=== PATIENT | female | born 1960 | race African-American/Black ===

== ENCOUNTER 2018-12-21 08:36 | Inpatient (IN) | payer OTHER ==
[2018-12-21 09:18] VITALS: BMI 25.2
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
[2018-12-21] MEDS ORDERED: MENTHOL/PHENOL 1 EACH UD MM PRN (10:04)
[2018-12-21] MEDS ORDERED: ACETAMINOPHEN 325 MG TABLET (FP) PO PRN ×2 (10:04)
[2018-12-21] MEDS ORDERED: MAG HYDROX/AL HYDROX/SIMETH 30 ML UNIT-DOSE CUP PO PRN (10:04)
[2018-12-21] MEDS ORDERED: hydrOXYzine PAMOATE 25 MG CAPSULE (FP) PO PRN (10:04)
[2018-12-21] MEDS ORDERED: MAGNESIUM HYDROX 2400MG/30ML ORAL SUSPENSION 30 ML CUP PO PRN (10:04)
[2018-12-21] MEDS ORDERED: chlordiazePOXIDE HCL 25 MG CAPSULE PO PRN (10:04)
[2018-12-21] MEDS ORDERED: BISMUTH SUBSALICYLATE 262 MG/15 ML BTL PO PRN (10:04)
[2018-12-21] MEDS ORDERED: METHOCARBAMOL 500 MG TABLET PO PRN (10:04)
[2018-12-21] MEDS ORDERED: MELATONIN 5 MG TABLETS PO PRN (10:04)
[2018-12-21] MEDS ORDERED: MAGNESIUM CITRATE 300 ML BOTTLE PO PRN (10:04)
[2018-12-21] MEDS ORDERED: IBUPROFEN 400 MG TABLET (FP) PO PRN (10:04)
[2018-12-21] MEDS ORDERED: COLLOIDAL OATMEAL 1 BAR EACH TP PRN (11:18)
[2018-12-21] MEDS: chlordiazePOXIDE HCL 25 MG CAPSULE PO SCH ×3 (11:27→22:18)
[2018-12-21] MEDS: NICOTINE 21 MG/24 HOURS TOPICAL PATCH TD SCH (11:27)
[2018-12-21] MEDS: FLUOCINONIDE 0.05% CREAM (60 GM TUBE) TP SCH ×2 (15:06→22:19)
[2018-12-21 16:06] LABS: ALBUMIN 3.8 g/dl (3.4-5.0); ALK PHOS 67 U/L (45-117); ANION GAP 6 MMOL/L (8-16); BILIRUBIN,TOTAL 0.4 mg/dL (0.2-1); BLOOD UREA NITROGEN 10 mg/dL (7-18); CALCIUM 8.9 mg/dL (8.5-10.1); CHLORIDE 106 mmol/L (98-107); CO2 27 mmol/L (21-32); CREATININE 0.7 mg/dL (0.55-1.3); GLUCOSE,RANDOM 79 mg/dL (74-106); POTASSIUM 3.8 mmol/L (3.5-5.1); SGOT/AST 11 U/L (15-37); SGPT/ALT 15 U/L (13-61); SODIUM 139 mmol/L (136-145); TOT PROT 7.3 g/dl (6.4-8.2)
[2018-12-21 16:27] LABS: EPI CELLS 2.6 /HPF (0-5/HPF); PH,URINE 5.5 (5.0-8.0); URINE APPEARANCE CLEAR; URINE BACTERIA 2.2 /hpf (NEGATIVE); URINE BILIRUBIN NEGATIVE (NEGATIVE); URINE CASTS 7 /hpf (0-8); URINE COLOR YELLOW; URINE GLUCOSE (UA) NEGATIVE (NEGATIVE); URINE KETONE NEGATIVE (NEGATIVE); URINE LEUK ESTERASE 2+ (NEGATIVE); URINE NITRITE NEGATIVE (NEGATIVE); URINE PROTEIN NEGATIVE (NEGATIVE); URINE RBC 2 /hpf (0-4); URINE UROBILINOGEN 0.2 mg/dL (0.2-1.0); URINE WBC 6 /hpf (0-5)
[2018-12-21 16:38] LABS: HEMATOCRIT 35.8 % (32.4-45.2); HEMOGLOBIN 11.7 GM/dL (10.7-15.3); MCH 29.1 pg (25.7-33.7); MCHC 32.8 g/dl (32.0-36.0); MEAN CELL VOLUME 88.7 fl (80-96); MEAN PLT VOLUME 8.6 fl (7.5-11.1); PLATELET COUNT 320 K/MM3 (134-434); RBC 4.03 M/mm3 (3.60-5.2); RDW 12.7 % (11.6-15.6); WHITE BLOOD COUNT 5.5 K/mm3 (4.0-10.0)
[2018-12-21 17:25] LABS: SICKLE CELL SCREEN NEGATIVE (NEGATIVE)
[2018-12-21] MEDS: CELECOXIB 100 MG CAPSULE PO SCH (22:17)
[2018-12-21] MEDS: THIAMINE HCL 100 MG TABLET (FP) PO SCH (22:18)
[2018-12-21] MEDS: QUEtiapine FUMARATE 50 MG TABLET PO SCH (22:18)
[2018-12-22] MEDS: chlordiazePOXIDE HCL 25 MG CAPSULE PO SCH ×4 (06:00→22:06)
[2018-12-22] MEDS: NICOTINE 21 MG/24 HOURS TOPICAL PATCH TD SCH (10:14)
[2018-12-22] MEDS: FLUOCINONIDE 0.05% CREAM (60 GM TUBE) TP SCH ×2 (10:15→22:05)
[2018-12-22] MEDS: PRENATAL VITAMINS W/ FOLIC ACID TABLET (FP) PO SCH (10:15)
[2018-12-22] MEDS: CELECOXIB 100 MG CAPSULE PO SCH ×2 (10:21→22:05)
--- NOTE | 2018-12-22 11:32 | PN ---
[facility] CIWA - CIWA Score Nausea/Vomitin-No Nausea/No Vomiting Muscle Tremors: 3 Anxiety: 3 Agitation: 3 Paroxysmal Sweats: 3 Orientation: 0-Oriented Tacttile Disturbances: 0-None Auditory Disturbances: 0-None Visual Disturbances: 0-None Headache: 0-None Present CIWA-Ar Total Score: 12 S Progress Note (SOAP) Subjective: tired sweats shakes interrupted sleep Objective: 12/22/18 11:30 Vital Signs Temperature 98.2 F 12/22/18 09:22 Pulse Rate 90 12/22/18 09:22 Respiratory Rate 16 12/22/18 09:22 Blood Pressure 114/73 12/22/18 09:22 O2 Sat by Pulse Oximetry (%) Laboratory Tests 12/21/18 12/21/18 12/21/18 10:15 10:15 10:15 WBC 5.5 RBC 4.03 Hgb 11.7 Hct 35.8 MCV 88.7 MCH 29.1 MCHC 32.8 RDW 12.7 Plt Count 320 MPV 8.6 Sickle Cell Screen Negative Sodium 139 Potassium 3.8 Chloride 106 Carbon Dioxide 27 Anion Gap 6 L BUN 10 Creatinine 0.7 Creat Clearance w eGFR 85.36 Random Glucose 79 Calcium 8.9 Total Bilirubin 0.4 AST 11 L ALT 15 Alkaline Phosphatase 67 Total Protein 7.3 Albumin 3.8 Urine Color Urine Appearance Urine pH Ur Specific [place] Urine Protein Urine Glucose (UA) Urine Ketones Urine Blood Urine Nitrite Urine Bilirubin Urine Urobilinogen Ur Leukocyte Esterase Urine WBC (Auto) Urine RBC (Auto) Urine Casts (Auto) U Epithel Cells (Auto) Urine Bacteria (Auto) RPR Titer Nonreactive 12/21/18 12:40 WBC RBC Hgb Hct MCV MCH MCHC RDW Plt Count MPV Sickle Cell Screen Sodium Potassium Chloride Carbon Dioxide Anion Gap BUN Creatinine Creat Clearance w eGFR Random Glucose Calcium Total Bilirubin AST ALT Alkaline Phosphatase Total Protein Albumin Urine Color Yellow Urine Appearance Clear Urine pH 5.5 Ur Specific [place] 1.012 Urine Protein Negative Urine Glucose (UA) Negative Urine Ketones Negative Urine Blood Negative Urine Nitrite Negative Urine Bilirubin Negative Urine Urobilinogen 0.2 Ur Leukocyte Esterase 2+ H Urine WBC (Auto) 6 Urine RBC (Auto) 2 Urine Casts (Auto) 7 U Epithel Cells (Auto) 2.6 Urine Bacteria (Auto) 2.2 RPR Titer aaox3 ambulating no acute distress Assessment: 12/22/18 11:37 withdrawal sx Plan: continue detox increase fluids
--- NOTE | 2018-12-22 16:39 | EKG ---
Test Reason : Blood Pressure : / mmHG Vent. Rate : 071 BPM Atrial Rate : 071 BPM P-R Int : 152 ms QRS Dur : 084 ms QT Int : 384 ms P-R-T Axes : 062 -06 019 degrees QTc Int : 417 ms NORMAL SINUS RHYTHM NORMAL ECG NO PREVIOUS ECGS AVAILABLE Confirmed by LEILA WORKMAN MD ([id number]) on 12/22/2018 4:39:32 PM Referred By: Confirmed By:LEILA WORKMAN MD
[2018-12-22] MEDS: THIAMINE HCL 100 MG TABLET (FP) PO SCH (22:05)
[2018-12-22] MEDS: QUEtiapine FUMARATE 50 MG TABLET PO SCH (22:05)
[2018-12-23] MEDS: chlordiazePOXIDE HCL 25 MG CAPSULE PO SCH (06:03)
[2018-12-23] MEDS ORDERED: NICOTINE POLACRILEX 4 MG GUM BUC PRN (06:44)
[2018-12-23] MEDS: CELECOXIB 100 MG CAPSULE PO SCH ×2 (10:07→22:14)
[2018-12-23] MEDS: PRENATAL VITAMINS W/ FOLIC ACID TABLET (FP) PO SCH (10:07)
[2018-12-23] MEDS: chlordiazePOXIDE HCL 10 MG CAPSULE PO SCH ×3 (10:07→22:14)
[2018-12-23] MEDS: FLUOCINONIDE 0.05% CREAM (60 GM TUBE) TP SCH ×2 (10:07→22:28)
[2018-12-23] MEDS: NICOTINE 21 MG/24 HOURS TOPICAL PATCH TD SCH (10:34)
[2018-12-23] MEDS ORDERED: chlordiazePOXIDE HCL 10 MG CAPSULE PO PRN (11:00)
--- NOTE | 2018-12-23 14:14 | PN ---
[facility] CIWA - CIWA Score Nausea/Vomitin-No Nausea/No Vomiting Muscle Tremors: 3 Anxiety: 3 Agitation: 3 Paroxysmal Sweats: 2 Orientation: 0-Oriented Tacttile Disturbances: 0-None Auditory Disturbances: 0-None Visual Disturbances: 0-None Headache: 0-None Present CIWA-Ar Total Score: 11 S Progress Note (SOAP) Subjective: irritable body aches sweats Objective: 12/23/18 14:13 Vital Signs Temperature 98.1 F 12/23/18 09:23 Pulse Rate 76 12/23/18 09:23 Respiratory Rate 18 12/23/18 09:23 Blood Pressure 101/57 L 12/23/18 09:23 O2 Sat by Pulse Oximetry (%) Laboratory Tests 12/21/18 12/21/18 12/21/18 10:15 10:15 10:15 WBC 5.5 RBC 4.03 Hgb 11.7 Hct 35.8 MCV 88.7 MCH 29.1 MCHC 32.8 RDW 12.7 Plt Count 320 MPV 8.6 Sickle Cell Screen Negative Sodium 139 Potassium 3.8 Chloride 106 Carbon Dioxide 27 Anion Gap 6 L BUN 10 Creatinine 0.7 Creat Clearance w eGFR 85.36 Random Glucose 79 Calcium 8.9 Total Bilirubin 0.4 AST 11 L ALT 15 Alkaline Phosphatase 67 Total Protein 7.3 Albumin 3.8 Urine Color Urine Appearance Urine pH Ur Specific [place] Urine Protein Urine Glucose (UA) Urine Ketones Urine Blood Urine Nitrite Urine Bilirubin Urine Urobilinogen Ur Leukocyte Esterase Urine WBC (Auto) Urine RBC (Auto) Urine Casts (Auto) U Epithel Cells (Auto) Urine Bacteria (Auto) RPR Titer Nonreactive 12/21/18 12:40 WBC RBC Hgb Hct MCV MCH MCHC RDW Plt Count MPV Sickle Cell Screen Sodium Potassium Chloride Carbon Dioxide Anion Gap BUN Creatinine Creat Clearance w eGFR Random Glucose Calcium Total Bilirubin AST ALT Alkaline Phosphatase Total Protein Albumin Urine Color Yellow Urine Appearance Clear Urine pH 5.5 Ur Specific [place] 1.012 Urine Protein Negative Urine Glucose (UA) Negative Urine Ketones Negative Urine Blood Negative Urine Nitrite Negative Urine Bilirubin Negative Urine Urobilinogen 0.2 Ur Leukocyte Esterase 2+ H Urine WBC (Auto) 6 Urine RBC (Auto) 2 Urine Casts (Auto) 7 U Epithel Cells (Auto) 2.6 Urine Bacteria (Auto) 2.2 RPR Titer aaox3 ambulating no acute distress Assessment: 12/23/18 14:13 mild withdrawals Plan: continue detox increase fluids
[2018-12-23] MEDS: THIAMINE HCL 100 MG TABLET (FP) PO SCH (22:14)
[2018-12-23] MEDS: QUEtiapine FUMARATE 50 MG TABLET PO SCH (22:14)
[2018-12-24] MEDS: chlordiazePOXIDE HCL 10 MG CAPSULE PO SCH (06:52)
[2018-12-24] MEDS: PRENATAL VITAMINS W/ FOLIC ACID TABLET (FP) PO SCH (09:03)
[2018-12-24] MEDS: NICOTINE 21 MG/24 HOURS TOPICAL PATCH TD SCH (09:03)
[2018-12-24] MEDS: CELECOXIB 100 MG CAPSULE PO SCH (09:03)
[2018-12-24] MEDS: FLUOCINONIDE 0.05% CREAM (60 GM TUBE) TP SCH (09:03)
[2018-12-24] MEDS ORDERED: chlordiazePOXIDE HCL 10 MG CAPSULE PO SCH (11:00)
--- NOTE | 2018-12-24 12:49 | PN ---
[facility] Progress Note (SOAP) Subjective: Mild sweats and tremors, interrupted sleep Objective: 12/24/18 12:48 Vital Signs 12/24/18 12/24/18 06:33 10:00 Temperature 97.7 F 98.1 F Pulse Rate 75 90 Respiratory 18 18 Rate Blood Pressure 115/60 138/76 Laboratory Last Values WBC 5.5 K/mm3 (4.0-10.0) 12/21/18 10:15 RBC 4.03 M/mm3 (3.60-5.2) 12/21/18 10:15 Hgb 11.7 GM/dL (10.7-15.3) 12/21/18 10:15 Hct 35.8 % (32.4-45.2) 12/21/18 10:15 MCV 88.7 fl (80-96) 12/21/18 10:15 MCH 29.1 pg (25.7-33.7) 12/21/18 10:15 MCHC 32.8 g/dl (32.0-36.0) 12/21/18 10:15 RDW 12.7 % (11.6-15.6) 12/21/18 10:15 Plt Count 320 K/MM3 (134-434) 12/21/18 10:15 MPV 8.6 fl (7.5-11.1) 12/21/18 10:15 Sickle Cell Screen Negative (NEGATIVE) 12/21/18 10:15 Sodium 139 mmol/L (136-145) 12/21/18 10:15 Potassium 3.8 mmol/L (3.5-5.1) 12/21/18 10:15 Chloride 106 mmol/L (98-107) 12/21/18 10:15 Carbon Dioxide 27 mmol/L (21-32) 12/21/18 10:15 Anion Gap 6 MMOL/L (8-16) L 12/21/18 10:15 BUN 10 mg/dL (7-18) 12/21/18 10:15 Creatinine 0.7 mg/dL (0.55-1.3) 12/21/18 10:15 Creat Clearance w eGFR 85.36 (>60) 12/21/18 10:15 Random Glucose 79 mg/dL (74-106) 12/21/18 10:15 Calcium 8.9 mg/dL (8.5-10.1) 12/21/18 10:15 Total Bilirubin 0.4 mg/dL (0.2-1) 12/21/18 10:15 AST 11 U/L (15-37) L 12/21/18 10:15 ALT 15 U/L (13-61) 12/21/18 10:15 Alkaline Phosphatase 67 U/L (45-117) 12/21/18 10:15 Total Protein 7.3 g/dl (6.4-8.2) 12/21/18 10:15 Albumin 3.8 g/dl (3.4-5.0) 12/21/18 10:15 Urine Color Yellow 12/21/18 12:40 Urine Appearance Clear 12/21/18 12:40 Urine pH 5.5 (5.0-8.0) 12/21/18 12:40 Ur Specific [place] 1.012 (1.010-1.035) 12/21/18 12:40 Urine Protein Negative (NEGATIVE) 12/21/18 12:40 Urine Glucose (UA) Negative (NEGATIVE) 12/21/18 12:40 Urine Ketones Negative (NEGATIVE) 12/21/18 12:40 Urine Blood Negative (NEGATIVE) 12/21/18 12:40 Urine Nitrite Negative (NEGATIVE) 12/21/18 12:40 Urine Bilirubin Negative (NEGATIVE) 12/21/18 12:40 Urine Urobilinogen 0.2 mg/dL (0.2-1.0) 12/21/18 12:40 Ur Leukocyte Esterase 2+ (NEGATIVE) H 12/21/18 12:40 Urine WBC (Auto) 6 /hpf (0-5) 12/21/18 12:40 Urine RBC (Auto) 2 /hpf (0-4) 12/21/18 12:40 Urine Casts (Auto) 7 /hpf (0-8) 12/21/18 12:40 U Epithel Cells (Auto) 2.6 /HPF (0-5/HPF) 12/21/18 12:40 Urine Bacteria (Auto) 2.2 /hpf (NEGATIVE) 12/21/18 12:40 RPR Titer Nonreactive (NONREACTIVE) 12/21/18 10:15 Labs noted Assessment: 12/24/18 12:49 Withdrawal sx Plan: Continue detox
[2018-12-24 14:30] VITALS: BP 123/71; PULSE 102; TEMP 99.1
--- NOTE | 2018-12-24 17:34 | PN ---
S Progress Note Note: patient did not want to complete treatment,signed release ama,did not want to wait
--- NOTE | 2018-12-24 17:42 | DS ---
[facility] Detox Discharge Summary Admission Date: 12/21/18 Discharge Date: 12/24/18 - History Present History: Alcohol Dependence Additional Comments: patient did not want to complete treatment,signed release ama,chance of relapsing is high, advise to go to [facility] emergency room if any problem Pertinent Past History: copd hypercholesterolemia weight loss bipolar disorder syncope - Physical Exam Results Vital Signs: Vital Signs Temperature 99.1 F 12/24/18 14:30 Pulse Rate 102 H 12/24/18 14:30 Respiratory Rate 16 12/24/18 14:30 Blood Pressure 123/71 12/24/18 14:30 O2 Sat by Pulse Oximetry (%) Pertinent Admission Physical Exam Findings: withdrawal signs and symptom Vital Signs Temperature 99.1 F 12/24/18 14:30 Pulse Rate 102 H 12/24/18 14:30 Respiratory Rate 16 12/24/18 14:30 Blood Pressure 123/71 12/24/18 14:30 O2 Sat by Pulse Oximetry (%) Laboratory Last Values WBC 5.5 K/mm3 (4.0-10.0) 12/21/18 10:15 RBC 4.03 M/mm3 (3.60-5.2) 12/21/18 10:15 Hgb 11.7 GM/dL (10.7-15.3) 12/21/18 10:15 Hct 35.8 % (32.4-45.2) 12/21/18 10:15 MCV 88.7 fl (80-96) 12/21/18 10:15 MCH 29.1 pg (25.7-33.7) 12/21/18 10:15 MCHC 32.8 g/dl (32.0-36.0) 12/21/18 10:15 RDW 12.7 % (11.6-15.6) 12/21/18 10:15 Plt Count 320 K/MM3 (134-434) 12/21/18 10:15 MPV 8.6 fl (7.5-11.1) 12/21/18 10:15 Sickle Cell Screen Negative (NEGATIVE) 12/21/18 10:15 Sodium 139 mmol/L (136-145) 12/21/18 10:15 Potassium 3.8 mmol/L (3.5-5.1) 12/21/18 10:15 Chloride 106 mmol/L (98-107) 12/21/18 10:15 Carbon Dioxide 27 mmol/L (21-32) 12/21/18 10:15 Anion Gap 6 MMOL/L (8-16) L 12/21/18 10:15 BUN 10 mg/dL (7-18) 12/21/18 10:15 Creatinine 0.7 mg/dL (0.55-1.3) 12/21/18 10:15 Creat Clearance w eGFR 85.36 (>60) 12/21/18 10:15 Random Glucose 79 mg/dL (74-106) 12/21/18 10:15 Calcium 8.9 mg/dL (8.5-10.1) 12/21/18 10:15 Total Bilirubin 0.4 mg/dL (0.2-1) 12/21/18 10:15 AST 11 U/L (15-37) L 12/21/18 10:15 ALT 15 U/L (13-61) 12/21/18 10:15 Alkaline Phosphatase 67 U/L (45-117) 12/21/18 10:15 Total Protein 7.3 g/dl (6.4-8.2) 12/21/18 10:15 Albumin 3.8 g/dl (3.4-5.0) 12/21/18 10:15 Urine Color Yellow 12/21/18 12:40 Urine Appearance Clear 12/21/18 12:40 Urine pH 5.5 (5.0-8.0) 12/21/18 12:40 Ur Specific [place] 1.012 (1.010-1.035) 12/21/18 12:40 Urine Protein Negative (NEGATIVE) 12/21/18 12:40 Urine Glucose (UA) Negative (NEGATIVE) 12/21/18 12:40 Urine Ketones Negative (NEGATIVE) 12/21/18 12:40 Urine Blood Negative (NEGATIVE) 12/21/18 12:40 Urine Nitrite Negative (NEGATIVE) 12/21/18 12:40 Urine Bilirubin Negative (NEGATIVE) 12/21/18 12:40 Urine Urobilinogen 0.2 mg/dL (0.2-1.0) 12/21/18 12:40 Ur Leukocyte Esterase 2+ (NEGATIVE) H 12/21/18 12:40 Urine WBC (Auto) 6 /hpf (0-5) 12/21/18 12:40 Urine RBC (Auto) 2 /hpf (0-4) 12/21/18 12:40 Urine Casts (Auto) 7 /hpf (0-8) 12/21/18 12:40 U Epithel Cells (Auto) 2.6 /HPF (0-5/HPF) 12/21/18 12:40 Urine Bacteria (Auto) 2.2 /hpf (NEGATIVE) 12/21/18 12:40 RPR Titer Nonreactive (NONREACTIVE) 12/21/18 10:15 - Medication Discharge Medications: Ambulatory Orders Celecoxib [Celebrex -] 100 mg PO BID 12/21/18 Quetiapine Fumarate [Seroquel -] 50 mg PO HS 12/21/18 - Diagnosis (1) Alcohol dependence with uncomplicated withdrawal Current Visit: Yes Status: Acute (2) Syncope Current Visit: Yes Status: Acute (3) COPD (chronic obstructive pulmonary disease) Current Visit: Yes Status: Acute (4) Hypercholesterolemia Current Visit: Yes Status: Acute (5) Weight loss Current Visit: Yes Status: Acute (6) Bipolar disorder Current Visit: Yes Status: Acute (7) Insomnia Current Visit: Yes Status: Acute - AMA Did Patient Leave Against Medical Advice: Yes
== END 2018-12-24 17:30 | disposition left against medical advice (07) | DRG 770 ==
LOC: YASAS 08:36 → Y6N 09:53
PROVIDERS: ADMIT Surgery; ATTEND Surgery
PROC: HZ2ZZZZ Detoxification Services for Substance Abuse Treatment (ICD-10-PCS; principal; 2018-12-21)
DX: F10.230 Alcohol dependence with withdrawal, uncomplicated (principal); F14.20 Cocaine dependence, uncomplicated; F17.210 Nicotine dependence, cigarettes, uncomplicated; F31.9 Bipolar disorder, unspecified; G47.00 Insomnia, unspecified; J44.9 Chronic obstructive pulmonary disease, unspecified; E78.00 Pure hypercholesterolemia, unspecified; R63.4 Abnormal weight loss
CPT/HCPCS: 36415; 71046-TC-FY; 80053; 81003; 85027; 85660; 86593; 93005; 93010

== ENCOUNTER 2019-03-20 09:47 | Inpatient (IN) | payer OTHER ==
[2019-03-20 11:49] VITALS: BMI 24.6
--- NOTE | 2019-03-20 14:15 | HP ---
CIWA Score Nausea/Vomitin-No Nausea/No Vomiting Muscle Tremors: 4-Moderate,w/Arms Extend Anxiety: 4-Mod. Anxious/Guarded Agitation: 3 Paroxysmal Sweats: 3 Orientation: 0-Oriented Tacttile Disturbances: 0-None Auditory Disturbances: 0-None Visual Disturbances: 0-None Headache: 0-None Present CIWA-Ar Total Score: 14 - Admission Criteria OASAS Guidelines: Admission for Medically Managed Detox: Requires at least one of the followin. CIWA greater than 12 2. Seizures within the past 24 hours 3. Delirium tremens within the past 24 hours 4. Hallucinations within the past 24 hours 5. Acute intervention needed for co occurring medical disorder 6. Acute intervention needed for co occurring psychiatric disorder 7. Severe withdrawal that cannot be handled at a lower level of care (continued vomiting, continued diarrhea, abnormal vital signs) requiring intravenous medication and/or fluids 8. Admission ROS S - HPI Chief Complaint: I need to stop drinking. Allergies/Adverse Reactions: Allergies Allergy/AdvReac Type Severity Reaction Status Date / Time lactose Allergy Verified 12/21/18 09:58 No Known Drug Allergies Allergy Verified 12/21/18 09:58 History of Present Illness: pt is a 58yrold female with a history of alcohol dependence seeking detox for treatment. Exam Limitations: No Limitations - Ebola screening Have you traveled outside of the country in the last 21 days: No (N) Have you had contact with anyone from an Ebola affected area: No Have you been sick,other than usual withdrawal symptoms: No Do you have a fever: No - Review of Systems Constitutional: Chills, Diaphoresis, Night Sweats, Changes in sleep, Unintentional Wgt. Loss EENT: reports: Tearing, Nose Congestion Respiratory: reports: Cough Cardiac: reports: Lightheadedness, Syncope GI: reports: Poor Fluid Intake, Indigestion, Abdominal cramping : reports: No Symptoms Reported Musculoskeletal: reports: Back Pain, Joint Pain Integumentary: reports: Flushing, Sweating Endocrine: reports: Excessive Sweating, Flushing, Intolerance to Cold Hematology: reports: No Symptoms Reported Psychiatric: reports: Judgement Intact, Mood/Affect Appropiate, Orientated x3, Agitated, Anxious Other Systems: Reviewed and Negative Patient History - Patient Medical History Hx Anemia: No Hx Asthma: No Hx Chronic Obstructive Pulmonary Disease (COPD): Yes (albuterol inhaler) Hx Cancer: No Hx Cardiac Disorders: No Hx Congestive Heart Failure: No Hx Hypertension: No Hx Hypercholesterolemia: No Hx Pacemaker: No HX Cerebrovascular Accident: No Hx Seizures: No Hx Dementia: No Hx Diabetes: No Hx Gastrointestinal Disorders: Yes Hx Liver Disease: No Hx Genitourinary Disorders: No Hx Sexually Transmitted Disorders: No Hx Renal Disease (ESRD): No Hx Thyroid Disease: No Hx Human Immunodeficiency Virus (HIV): No (last 2014 negative) Hx Hepatitis C: No (negative) Hx Depression: Yes Hx Suicide Attempt: No Hx Bipolar Disorder: Yes (on seroqule 50 mgs po hs) Hx Schizophrenia: No - Patient Surgical History Past Surgical History: Yes Hx Orthopedic Surgery: Yes (arhtroscopy right knee 2013,2018,right shoulder 2013 ) Other Surgical History: Arthroscopic xs R shoulder in 2013 Anesthesia Reaction: No - PPD History Previous Implant?: Yes Implanted On Prior R Admission?: No Date: 12/21/18 Results: - chest xray PPD to be Administered?: No - Reproductive History Patient is a Female of Child Bearing Age (11 -55 yrs old): No - Smoking Cessation Smoking history: Current every day smoker Have you smoked in the past 12 months: Yes Aproximately how many cigarettes per day: 10 Hx Chewing Tobacco Use: No Initiated information on smoking cessation: Yes 'Breaking Loose' booklet given: 03/20/19 - Substance & Tx. History Hx Alcohol Use: Yes Substance Use Type: Alcohol, Cocaine, Marijuana Hx Substance Use Treatment: Yes (last detox [facility] 12/2018) - Substances abused Alcohol Substance route: Oral Frequency: 1-3 times last 30 days Amount used: 1 pint vodka Age of first use: 12 Date of last use: 03/20/19 Crack Substance route: Smoking Frequency: Daily Amount used: $1200 Age of first use: 20 Date of last use: 03/20/19 Marijuana/Hashish Substance route: Smoking Frequency: Daily Amount used: $25 Age of first use: 12 Date of last use: 03/20/19 Family Disease History - Family Disease History Family History: Denies Admission Physical Exam BHS - Vital Signs Vital Signs: Vital Signs - 24 hr 03/20/19 11:25 Temperature 98.4 F Pulse Rate 69 Respiratory 20 Rate Blood Pressure 109/65 - Physical General Appearance: Yes: Appropriately Dressed, Moderate Distress, Tremorous, Irritable, Sweating, Anxious HEENTM: Yes: Hearing grossly Normal, Normal Voice, Nasal Congestion, Rhinorrhea Respiratory: Yes: Lungs Clear, Normal Breath Sounds, No Respiratory Distress Neck: Yes: No masses,lesions,Nodules Breast: Yes: Within Normal Limits Cardiology: Yes: Regular Rhythm, Regular Rate, S1, S2 Abdominal: Yes: Within Normal Limits, Normal Bowel Sounds, Soft Genitourinary: Yes: Within Normal Limits Back: Yes: Normal Inspection Musculoskeletal: Yes: full range of Motion, Back pain Extremities: Yes: Normal Capillary Refill, Normal Inspection, Non-Tender, Tremors Neurological: Yes: Fully Oriented, Alert, Normal Response Integumentary: Yes: Normal Color, Diaphoresis Lymphatic: Yes: Within Normal Limits - Diagnostic (1) Alcohol dependence with uncomplicated withdrawal Current Visit: Yes Status: Chronic (2) Bipolar disorder Current Visit: No Status: Acute (3) COPD (chronic obstructive pulmonary disease) Current Visit: No Status: Acute (4) Syncope Current Visit: Yes Status: Chronic Qualifiers: Syncope type: unspecified Qualified Code(s): R55 - Syncope and collapse Cleared for Admission [facility] - Detox or Rehab [facility] Level of Care: Medically Managed Detox Regimen/Protocol: Librium Breathalyzer - Breathalyzer Breathalyzer: 0 POC Urine test - Test device test lot number: [id number] Expiration date: 05/13/20 - Control test control: Yes Urine Drug Screen - Test Device Lot number: [id number] Expiration date: 01/10/21 - Control Is test valid?: Yes - Results Drug screen NEGATIVE: No Urine drug screen results: THC-Marijuana, ESVIN-Cocaine Inpatient Rehab Admission - Rehab Decision to Admit Inpatient rehab admission?: No
[2019-03-20] MEDS ORDERED: MAGNESIUM HYDROX 2400MG/30ML ORAL SUSPENSION 30 ML CUP PO PRN (14:22)
[2019-03-20] MEDS ORDERED: NICOTINE POLACRILEX 4 MG GUM BUC PRN (14:22)
[2019-03-20] MEDS ORDERED: IBUPROFEN 400 MG TABLET (FP) PO PRN (14:22)
[2019-03-20] MEDS ORDERED: MAG HYDROX/AL HYDROX/SIMETH 30 ML UNIT-DOSE CUP PO PRN (14:22)
[2019-03-20] MEDS ORDERED: hydrOXYzine PAMOATE 25 MG CAPSULE (FP) PO PRN (14:22)
[2019-03-20] MEDS ORDERED: ACETAMINOPHEN 325 MG TABLET (FP) PO PRN ×2 (14:22)
[2019-03-20] MEDS ORDERED: chlordiazePOXIDE HCL 25 MG CAPSULE PO PRN (14:22)
[2019-03-20] MEDS ORDERED: ONDANSETRON *ODT* 4 MG TABLET SL PRN (14:22)
[2019-03-20] MEDS ORDERED: MAGNESIUM CITRATE 300 ML BOTTLE PO PRN (14:22)
[2019-03-20] MEDS ORDERED: METHOCARBAMOL 500 MG TABLET PO PRN (14:22)
[2019-03-20] MEDS ORDERED: MENTHOL/PHENOL 1 EACH UD MM PRN (14:22)
[2019-03-20] MEDS ORDERED: chlordiazePOXIDE HCL 25 MG CAPSULE PO ONE (15:45)
[2019-03-20] MEDS: chlordiazePOXIDE HCL 25 MG CAPSULE PO SCH ×2 (16:05→22:21)
[2019-03-20 16:54] LABS: HEMATOCRIT 33.9 % (32.4-45.2); HEMOGLOBIN 11.1 GM/dL (10.7-15.3); MCH 29.2 pg (25.7-33.7); MCHC 32.8 g/dl (32.0-36.0); MEAN CELL VOLUME 89.1 fl (80-96); MEAN PLT VOLUME 9.1 fl (7.5-11.1); PLATELET COUNT 323 K/MM3 (134-434); RDW 12.8 % (11.6-15.6); WHITE BLOOD COUNT 5.6 K/mm3 (4.0-10.0)
[2019-03-20 16:59] LABS: ALBUMIN 3.7 g/dl (3.4-5.0); BILIRUBIN,TOTAL 0.3 mg/dL (0.2-1); BLOOD UREA NITROGEN 9.8 mg/dL (7-18); CALCIUM 8.7 mg/dL (8.5-10.1); CREATININE 0.8 mg/dL (0.55-1.3); POTASSIUM 4.6 mmol/L (3.5-5.1); TOT PROT 6.8 g/dl (6.4-8.2)
[2019-03-20] MEDS: THIAMINE HCL 100 MG TABLET (FP) PO SCH (22:21)
[2019-03-21] MEDS: chlordiazePOXIDE HCL 25 MG CAPSULE PO SCH ×4 (05:51→22:28)
[2019-03-21] MEDS: PRENATAL VITAMINS W/ FOLIC ACID TABLET (FP) PO SCH (10:12)
[2019-03-21] MEDS: NICOTINE 21 MG/24 HOURS TOPICAL PATCH TD SCH (10:12)
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
--- NOTE | 2019-03-21 10:52 | PN ---
S CIWA - CIWA Score Nausea/Vomitin-Mild Nausea/No Vomiting Muscle Tremors: 4-Moderate,w/Arms Extend Anxiety: 4-Mod. Anxious/Guarded Agitation: 4-Moderately Restless Paroxysmal Sweats: 3 Orientation: 0-Oriented Tacttile Disturbances: 0-None Auditory Disturbances: 0-None Visual Disturbances: 0-None Headache: 0-None Present CIWA-Ar Total Score: 16 BHS Progress Note (SOAP) Subjective: low back pain sweats interrupted sleep body aches Objective: 03/21/19 10:51 Vital Signs Temperature 98.6 F 03/21/19 09:41 Pulse Rate 73 03/21/19 09:41 Respiratory Rate 18 03/21/19 09:41 Blood Pressure 118/71 03/21/19 09:41 O2 Sat by Pulse Oximetry (%) Laboratory Tests 03/20/19 03/20/19 03/20/19 12:30 15:00 15:00 WBC 5.6 RBC 3.80 Hgb 11.1 Hct 33.9 MCV 89.1 MCH 29.2 MCHC 32.8 RDW 12.8 Plt Count 323 MPV 9.1 Sodium Potassium Chloride Carbon Dioxide Anion Gap BUN Creatinine Est GFR (CKD-EPI)AfAm Est GFR (CKD-EPI)NonAf Random Glucose Calcium Total Bilirubin AST ALT Alkaline Phosphatase Total Protein Albumin POC Urine HCG, Qual Negative RPR Titer HIV 1&2 Antibody Screen Negative HIV P24 Antigen Negative 03/20/19 03/20/19 15:00 15:00 WBC RBC Hgb Hct MCV MCH MCHC RDW Plt Count MPV Sodium 142 Potassium 4.6 Chloride 108 H Carbon Dioxide 32 Anion Gap 1 L BUN 9.8 Creatinine 0.8 Est GFR (CKD-EPI)AfAm 92.87 Est GFR (CKD-EPI)NonAf 80.13 Random Glucose 80 Calcium 8.7 Total Bilirubin 0.3 AST 11 L ALT 19 Alkaline Phosphatase 70 Total Protein 6.8 Albumin 3.7 POC Urine HCG, Qual RPR Titer Nonreactive HIV 1&2 Antibody Screen HIV P24 Antigen labs noted aaox3 ambulating no acute distress Assessment: 03/21/19 10:52 withdrawal sx Plan: continue detox increase fluids zofran sl prn lidocaine patch daily
[2019-03-21] MEDS: LIDOCAINE 5% TOPICAL PATCH TP SCH (11:25)
[2019-03-21] MEDS: THIAMINE HCL 100 MG TABLET (FP) PO SCH (22:27)
[2019-03-21] MEDS: QUEtiapine FUMARATE 50 MG TABLET PO SCH (22:28)
[2019-03-21] MEDS: LIDOCAINE PATCH REMOVAL MC SCH (22:28)
[2019-03-22] MEDS: chlordiazePOXIDE HCL 25 MG CAPSULE PO SCH ×4 (05:36→22:33)
[2019-03-22] MEDS: PRENATAL VITAMINS W/ FOLIC ACID TABLET (FP) PO SCH (10:32)
[2019-03-22] MEDS: NICOTINE 21 MG/24 HOURS TOPICAL PATCH TD SCH (10:32)
[2019-03-22] MEDS: LIDOCAINE 5% TOPICAL PATCH TP SCH (10:32)
[2019-03-22] MEDS ORDERED: IBUPROFEN 600 MG TABLET (FP) PO PRN (13:19)
--- NOTE | 2019-03-22 13:19 | PN ---
[facility] CIWA - CIWA Score Nausea/Vomitin-No Nausea/No Vomiting Muscle Tremors: 3 Anxiety: 2 Agitation: 3 Paroxysmal Sweats: 2 Orientation: 0-Oriented Tacttile Disturbances: 0-None Auditory Disturbances: 0-None Visual Disturbances: 0-None Headache: 0-None Present CIWA-Ar Total Score: 10 S Progress Note (SOAP) Subjective: sweats low back pain Objective: 03/22/19 13:18 Vital Signs Temperature 98.6 F 03/22/19 09:36 Pulse Rate 93 H 03/22/19 09:36 Respiratory Rate 18 03/22/19 09:36 Blood Pressure 131/65 03/22/19 09:36 O2 Sat by Pulse Oximetry (%) Laboratory Tests 03/20/19 03/20/19 03/20/19 12:30 15:00 15:00 WBC 5.6 RBC 3.80 Hgb 11.1 Hct 33.9 MCV 89.1 MCH 29.2 MCHC 32.8 RDW 12.8 Plt Count 323 MPV 9.1 Sodium Potassium Chloride Carbon Dioxide Anion Gap BUN Creatinine Est GFR (CKD-EPI)AfAm Est GFR (CKD-EPI)NonAf Random Glucose Calcium Total Bilirubin AST ALT Alkaline Phosphatase Total Protein Albumin POC Urine HCG, Qual Negative RPR Titer HIV 1&2 Antibody Screen Negative HIV P24 Antigen Negative 03/20/19 03/20/19 15:00 15:00 WBC RBC Hgb Hct MCV MCH MCHC RDW Plt Count MPV Sodium 142 Potassium 4.6 Chloride 108 H Carbon Dioxide 32 Anion Gap 1 L BUN 9.8 Creatinine 0.8 Est GFR (CKD-EPI)AfAm 92.87 Est GFR (CKD-EPI)NonAf 80.13 Random Glucose 80 Calcium 8.7 Total Bilirubin 0.3 AST 11 L ALT 19 Alkaline Phosphatase 70 Total Protein 6.8 Albumin 3.7 POC Urine HCG, Qual RPR Titer Nonreactive HIV 1&2 Antibody Screen HIV P24 Antigen labs noted aaox3 ambulating no acute distress Assessment: 03/22/19 13:18 mild withdrawal sx Plan: continue detox increase fluids motrin 600mg prn lidocaine patch daily
[2019-03-22] MEDS: THIAMINE HCL 100 MG TABLET (FP) PO SCH (22:32)
[2019-03-22] MEDS: QUEtiapine FUMARATE 50 MG TABLET PO SCH (22:32)
[2019-03-22] MEDS: MELATONIN 5 MG TABLETS PO PRN (22:33)
[2019-03-22] MEDS: LIDOCAINE PATCH REMOVAL MC SCH (23:38)
[2019-03-23] MEDS: chlordiazePOXIDE HCL 10 MG CAPSULE PO SCH ×4 (05:31→22:11)
[2019-03-23] MEDS: NICOTINE 21 MG/24 HOURS TOPICAL PATCH TD SCH (10:30)
[2019-03-23] MEDS: PRENATAL VITAMINS W/ FOLIC ACID TABLET (FP) PO SCH (10:30)
[2019-03-23] MEDS: LIDOCAINE 5% TOPICAL PATCH TP SCH (10:30)
--- NOTE | 2019-03-23 12:38 | PN ---
S CIWA - CIWA Score Nausea/Vomitin-No Nausea/No Vomiting Muscle Tremors: 2 Anxiety: 2 Agitation: 2 Paroxysmal Sweats: 2 Orientation: 0-Oriented Tacttile Disturbances: 0-None Auditory Disturbances: 0-None Visual Disturbances: 0-None Headache: 0-None Present CIWA-Ar Total Score: 8 BHS Progress Note (SOAP) Subjective: anxiety sweats interrupted sleep Objective: 03/23/19 12:37 Vital Signs Temperature 97.0 F L 03/23/19 09:50 Pulse Rate 81 03/23/19 09:50 Respiratory Rate 16 03/23/19 09:50 Blood Pressure 124/75 03/23/19 09:50 O2 Sat by Pulse Oximetry (%) aaox3 ambulating no acute distress Assessment: 03/23/19 12:38 withdrawal sx Plan: continue detox increase fluids
[2019-03-23] MEDS: THIAMINE HCL 100 MG TABLET (FP) PO SCH (22:11)
[2019-03-23] MEDS: QUEtiapine FUMARATE 50 MG TABLET PO SCH (22:11)
[2019-03-23] MEDS: MELATONIN 5 MG TABLETS PO PRN (22:12)
[2019-03-23] MEDS: LIDOCAINE PATCH REMOVAL MC SCH (22:13)
[2019-03-24] MEDS ORDERED: chlordiazePOXIDE HCL 10 MG CAPSULE PO SCH (05:00)
[2019-03-24] MEDS: NICOTINE 21 MG/24 HOURS TOPICAL PATCH TD SCH (09:34)
[2019-03-24 09:58] VITALS: BP 122/74; PULSE 81; TEMP 97.7
--- NOTE | 2019-03-24 10:08 | DS ---
[facility] Detox Discharge Summary Admission Date: 03/20/19 Discharge Date: 03/24/19 - History Present History: Alcohol Dependence, Cannabis Dependence, Cocaine Dependence - Physical Exam Results Vital Signs: Vital Signs Temperature 97.7 F 03/24/19 09:57 Pulse Rate 81 03/24/19 09:57 Respiratory Rate 18 03/24/19 09:57 Blood Pressure 122/74 03/24/19 09:57 O2 Sat by Pulse Oximetry (%) Pertinent Admission Physical Exam Findings: pt arrived in withdrawals Laboratory Tests 03/20/19 03/20/19 03/20/19 12:30 15:00 15:00 WBC 5.6 RBC 3.80 Hgb 11.1 Hct 33.9 MCV 89.1 MCH 29.2 MCHC 32.8 RDW 12.8 Plt Count 323 MPV 9.1 Sodium Potassium Chloride Carbon Dioxide Anion Gap BUN Creatinine Est GFR (CKD-EPI)AfAm Est GFR (CKD-EPI)NonAf Random Glucose Calcium Total Bilirubin AST ALT Alkaline Phosphatase Total Protein Albumin POC Urine HCG, Qual Negative RPR Titer HIV 1&2 Antibody Screen Negative HIV P24 Antigen Negative 03/20/19 03/20/19 15:00 15:00 WBC RBC Hgb Hct MCV MCH MCHC RDW Plt Count MPV Sodium 142 Potassium 4.6 Chloride 108 H Carbon Dioxide 32 Anion Gap 1 L BUN 9.8 Creatinine 0.8 Est GFR (CKD-EPI)AfAm 92.87 Est GFR (CKD-EPI)NonAf 80.13 Random Glucose 80 Calcium 8.7 Total Bilirubin 0.3 AST 11 L ALT 19 Alkaline Phosphatase 70 Total Protein 6.8 Albumin 3.7 POC Urine HCG, Qual RPR Titer Nonreactive HIV 1&2 Antibody Screen HIV P24 Antigen aaox3 ambulating no acute distress - Treatment Hospital Course: Detox Protocol Followed, Detoxed Safely, Responded well, Discharged Condition Good, Rehab Referral Accepted - Medication Discharge Medications: Ambulatory Orders Celecoxib [CeleBREX -] 100 mg PO BID 12/21/18 Quetiapine Fumarate [Seroquel -] 50 mg PO HS 12/21/18 - Diagnosis (1) Alcohol dependence with uncomplicated withdrawal Current Visit: Yes Status: Chronic (2) Bipolar disorder Current Visit: Yes Status: Chronic Qualifiers: Current episode severity: unspecified (3) COPD (chronic obstructive pulmonary disease) Current Visit: No Status: Chronic Qualifiers: COPD type: unspecified COPD Qualified Code(s): J44.9 - Chronic obstructive pulmonary disease, unspecified (4) Syncope Current Visit: Yes Status: Chronic Qualifiers: Syncope type: unspecified Qualified Code(s): R55 - Syncope and collapse - AMA Did Patient Leave Against Medical Advice: No ([facility])
[2019-03-25] MEDS ORDERED: chlordiazePOXIDE HCL 10 MG CAPSULE PO ONE (05:00)
== END 2019-03-24 12:21 | disposition home or self-care (01) | DRG 774 ==
LOC: YASAS 09:47 → Y6N 14:34
PROVIDERS: ADMIT Surgery; ATTEND Surgery
PROC: HZ2ZZZZ Detoxification Services for Substance Abuse Treatment (ICD-10-PCS; principal; 2019-03-20)
DX: F10.230 Alcohol dependence with withdrawal, uncomplicated (principal); F14.20 Cocaine dependence, uncomplicated; F12.20 Cannabis dependence, uncomplicated; F17.210 Nicotine dependence, cigarettes, uncomplicated; F19.24 Other psychoactive substance dependence with psychoactive substance-induced mood disorder; F19.282 Other psychoactive substance dependence with psychoactive substance-induced sleep disorder; F31.9 Bipolar disorder, unspecified; J44.9 Chronic obstructive pulmonary disease, unspecified; M17.0 Bilateral primary osteoarthritis of knee; M19.011 Primary osteoarthritis, right shoulder
CPT/HCPCS: 36415; 80053; 81025; 85027; 86593; 87389

== ENCOUNTER 2019-09-19 14:49 | Inpatient (IN) | payer OTHER ==
[2019-09-19 16:32] VITALS: BMI 22.3
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
--- NOTE | 2019-09-19 19:41 | PN ---
Teaching Attending Note Name of Resident: Araceli Handley ATTENDING PHYSICIAN STATEMENT I saw and evaluated the patient. I reviewed the resident's note and discussed the case with the resident. I agree with the resident's findings and plan as documented. SUBJECTIVE: 58 yo with AUD and crack cocaine use here for alcohol detox. Was last here 4 months ago and relapsed immediately. CIWA 12 OBJECTIVE: Vital Signs - 24 hr 09/19/19 09/19/19 16:23 18:56 Temperature 98.4 F 98.4 F Pulse Rate 87 87 Respiratory 16 16 Rate Blood Pressure 135/79 135/79 alert and oriented ASSESSMENT AND PLAN: AUD- start alcohol detox protocol f/u with counselor re correction treatment
[2019-09-19] MEDS ORDERED: hydrOXYzine PAMOATE 25 MG CAPSULE (FP) PO PRN (19:45)
[2019-09-19] MEDS ORDERED: ACETAMINOPHEN 325 MG TABLET (FP) PO PRN (19:45)
[2019-09-19] MEDS ORDERED: METHOCARBAMOL 500 MG TABLET PO PRN (19:45)
[2019-09-19] MEDS ORDERED: BISMUTH SUBSALICYLATE 524 MG/30 ML UD PO PRN (19:45)
[2019-09-19] MEDS ORDERED: MAGNESIUM HYDROX 2400MG/30ML ORAL SUSPENSION 30 ML CUP PO PRN (19:45)
[2019-09-19] MEDS ORDERED: MAGNESIUM CITRATE 300 ML BOTTLE PO PRN (19:45)
[2019-09-19] MEDS ORDERED: MAG HYDROX/AL HYDROX/SIMETH 30 ML UNIT-DOSE CUP PO PRN (19:45)
[2019-09-19] MEDS ORDERED: chlordiazePOXIDE HCL 25 MG CAPSULE PO PRN (19:45)
[2019-09-19] MEDS ORDERED: IBUPROFEN 400 MG TABLET (FP) PO PRN (19:45)
[2019-09-19] MEDS ORDERED: MENTHOL/PHENOL 1 EACH UD MM PRN (19:45)
[2019-09-19] MEDS: THIAMINE HCL 100 MG TABLET (FP) PO SCH (21:45)
[2019-09-19] MEDS: MELATONIN 5 MG TABLETS PO PRN (21:45)
[2019-09-19] MEDS: NICOTINE 14 MG/24 HOURS TOPICAL PATCH TD SCH (21:45)
[2019-09-19] MEDS: chlordiazePOXIDE HCL 25 MG CAPSULE PO SCH (22:31)
[2019-09-20] MEDS: chlordiazePOXIDE HCL 25 MG CAPSULE PO SCH ×4 (05:30→23:24)
[2019-09-20 09:38] LABS: HEMATOCRIT 35.9 % (32.4-45.2); HEMOGLOBIN 11.6 GM/dL (10.7-15.3); MCH 29.3 pg (25.7-33.7); MCHC 32.3 g/dl (32.0-36.0); MEAN CELL VOLUME 90.7 fl (80-96); MEAN PLT VOLUME 8.7 fl (7.5-11.1); PLATELET COUNT 317 K/MM3 (134-434); RBC 3.95 M/mm3 (3.60-5.2); RDW 13.1 % (11.6-15.6); WHITE BLOOD COUNT 3.1 K/mm3 (4.0-10.0)
[2019-09-20 09:59] LABS: ALBUMIN 3.3 g/dl (3.4-5.0); BILIRUBIN,TOTAL 0.3 mg/dL (0.2-1); BLOOD UREA NITROGEN 11.8 mg/dL (7-18); CALCIUM 8.6 mg/dL (8.5-10.1); CREATININE 0.7 mg/dL (0.55-1.3); POTASSIUM 4.2 mmol/L (3.5-5.1); TOT PROT 6.4 g/dl (6.4-8.2)
[2019-09-20] MEDS: PRENATAL VITAMINS W/ FOLIC ACID TABLET (FP) PO SCH (10:18)
[2019-09-20] MEDS: NICOTINE 14 MG/24 HOURS TOPICAL PATCH TD SCH (10:18)
[2019-09-20] MEDS ORDERED: chlordiazePOXIDE HCL 25 MG CAPSULE PO PRN (10:25)
[2019-09-20] MEDS ORDERED: FLU VACCINE QUAD 60 MCG/0.5 ML (MDV 19-20) IM ONE (12:00)
--- NOTE | 2019-09-20 12:08 | PN ---
S CIWA - CIWA Score Nausea/Vomitin-Mild Nausea/No Vomiting Muscle Tremors: 2 Anxiety: 4-Mod. Anxious/Guarded Agitation: 1-Slight > Activity Paroxysmal Sweats: 3 Orientation: 0-Oriented Tacttile Disturbances: 0-None Auditory Disturbances: 0-None Visual Disturbances: 0-None Headache: 1-Very Mild CIWA-Ar Total Score: 12 BHS Progress Note (SOAP) Subjective: 58 years old female admitted on 09/19/19 for alcohol withdrawal sx management treating with librium detox regimen requests not to open librium capsule to swallow librium capsule as whole change librium regimen to close capsule requests ensure as nutrition supplement ensure order Objective: 09/20/19 12:15 Vital Signs Temperature 98.7 F 09/20/19 09:11 Pulse Rate 75 09/20/19 09:11 Respiratory Rate 18 09/20/19 09:11 Blood Pressure 113/71 09/20/19 09:11 O2 Sat by Pulse Oximetry (%) Laboratory Last Values WBC 3.1 K/mm3 (4.0-10.0) L 09/20/19 08:00 RBC 3.95 M/mm3 (3.60-5.2) 09/20/19 08:00 Hgb 11.6 GM/dL (10.7-15.3) 09/20/19 08:00 Hct 35.9 % (32.4-45.2) 09/20/19 08:00 MCV 90.7 fl (80-96) 09/20/19 08:00 MCH 29.3 pg (25.7-33.7) 09/20/19 08:00 MCHC 32.3 g/dl (32.0-36.0) 09/20/19 08:00 RDW 13.1 % (11.6-15.6) 09/20/19 08:00 Plt Count 317 K/MM3 (134-434) 09/20/19 08:00 MPV 8.7 fl (7.5-11.1) 09/20/19 08:00 Sodium 142 mmol/L (136-145) 09/20/19 08:00 Potassium 4.2 mmol/L (3.5-5.1) 09/20/19 08:00 Chloride 109 mmol/L (98-107) H 09/20/19 08:00 Carbon Dioxide 29 mmol/L (21-32) 09/20/19 08:00 Anion Gap 4 MMOL/L (8-16) L 09/20/19 08:00 BUN 11.8 mg/dL (7-18) 09/20/19 08:00 Creatinine 0.7 mg/dL (0.55-1.3) 09/20/19 08:00 Est GFR (CKD-EPI)AfAm 109.15 09/20/19 08:00 Est GFR (CKD-EPI)NonAf 94.17 09/20/19 08:00 Random Glucose 82 mg/dL (74-106) 09/20/19 08:00 Calcium 8.6 mg/dL (8.5-10.1) 09/20/19 08:00 Total Bilirubin 0.3 mg/dL (0.2-1) 09/20/19 08:00 AST 10 U/L (15-37) L 09/20/19 08:00 ALT 16 U/L (13-61) 09/20/19 08:00 Alkaline Phosphatase 61 U/L (45-117) 09/20/19 08:00 Total Protein 6.4 g/dl (6.4-8.2) 09/20/19 08:00 Albumin 3.3 g/dl (3.4-5.0) L 09/20/19 08:00 POC Urine HCG, Qual Negative 09/19/19 23:10 RPR Titer Nonreactive (NONREACTIVE) 09/20/19 08:00 HIV 1&2 Antibody Screen Negative 09/20/19 08:00 HIV P24 Antigen Negative 09/20/19 08:00 lab noted Assessment: 09/20/19 12:16 alcohol withdrawal Plan: librium regimen
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
[2019-09-20] MEDS: THIAMINE HCL 100 MG TABLET (FP) PO SCH (22:47)
[2019-09-20] MEDS: QUEtiapine FUMARATE 50 MG TABLET PO SCH (22:47)
[2019-09-21] MEDS: chlordiazePOXIDE HCL 25 MG CAPSULE PO SCH ×4 (05:49→22:42)
[2019-09-21] MEDS: NICOTINE 14 MG/24 HOURS TOPICAL PATCH TD SCH (10:08)
[2019-09-21] MEDS: PRENATAL VITAMINS W/ FOLIC ACID TABLET (FP) PO SCH (10:08)
--- NOTE | 2019-09-21 10:34 | PN ---
S CIWA - CIWA Score Nausea/Vomitin-No Nausea/No Vomiting Muscle Tremors: 1-None Visible, but [place] Anxiety: 4-Mod. Anxious/Guarded Agitation: 2 Paroxysmal Sweats: 1-Minimal Palms Moist Orientation: 0-Oriented Tacttile Disturbances: 0-None Auditory Disturbances: 0-None Visual Disturbances: 0-None Headache: 1-Very Mild CIWA-Ar Total Score: 9 BHS Progress Note (SOAP) Subjective: 58 years old female admitted on 09/19/19 for alcohol withdrawal sx management treating with librium detox regimen seen by psychiatrist yesterday resume seroquel po hs feeling ok today requests to be seen by a psychiatrist for psychotropic dosage adjustment denies suicidal ideation no homocidal ideation Objective: 09/21/19 10:33 Vital Signs Temperature 97.7 F 09/21/19 09:11 Pulse Rate 80 09/21/19 09:11 Respiratory Rate 16 09/21/19 09:11 Blood Pressure 112/72 09/21/19 09:11 O2 Sat by Pulse Oximetry (%) Laboratory Last Values WBC 3.1 K/mm3 (4.0-10.0) L 09/20/19 08:00 RBC 3.95 M/mm3 (3.60-5.2) 09/20/19 08:00 Hgb 11.6 GM/dL (10.7-15.3) 09/20/19 08:00 Hct 35.9 % (32.4-45.2) 09/20/19 08:00 MCV 90.7 fl (80-96) 09/20/19 08:00 MCH 29.3 pg (25.7-33.7) 09/20/19 08:00 MCHC 32.3 g/dl (32.0-36.0) 09/20/19 08:00 RDW 13.1 % (11.6-15.6) 09/20/19 08:00 Plt Count 317 K/MM3 (134-434) 09/20/19 08:00 MPV 8.7 fl (7.5-11.1) 09/20/19 08:00 Sodium 142 mmol/L (136-145) 09/20/19 08:00 Potassium 4.2 mmol/L (3.5-5.1) 09/20/19 08:00 Chloride 109 mmol/L (98-107) H 09/20/19 08:00 Carbon Dioxide 29 mmol/L (21-32) 09/20/19 08:00 Anion Gap 4 MMOL/L (8-16) L 09/20/19 08:00 BUN 11.8 mg/dL (7-18) 09/20/19 08:00 Creatinine 0.7 mg/dL (0.55-1.3) 09/20/19 08:00 Est GFR (CKD-EPI)AfAm 109.15 09/20/19 08:00 Est GFR (CKD-EPI)NonAf 94.17 09/20/19 08:00 Random Glucose 82 mg/dL (74-106) 09/20/19 08:00 Calcium 8.6 mg/dL (8.5-10.1) 09/20/19 08:00 Total Bilirubin 0.3 mg/dL (0.2-1) 09/20/19 08:00 AST 10 U/L (15-37) L 09/20/19 08:00 ALT 16 U/L (13-61) 09/20/19 08:00 Alkaline Phosphatase 61 U/L (45-117) 09/20/19 08:00 Total Protein 6.4 g/dl (6.4-8.2) 09/20/19 08:00 Albumin 3.3 g/dl (3.4-5.0) L 09/20/19 08:00 POC Urine HCG, Qual Negative 09/19/19 23:10 RPR Titer Nonreactive (NONREACTIVE) 09/20/19 08:00 HIV 1&2 Antibody Screen Negative 09/20/19 08:00 HIV P24 Antigen Negative 09/20/19 08:00 lab noted Assessment: 09/21/19 10:33 alcohol withdrawal Plan: librium regimen
--- NOTE | 2019-09-21 10:49 | PN ---
[facility] CIWA - CIWA Score Nausea/Vomitin-No Nausea/No Vomiting Muscle Tremors: 3 Anxiety: 3 Agitation: 0-Normal Activity Paroxysmal Sweats: 1-Minimal Palms Moist Orientation: 0-Oriented Tacttile Disturbances: 1-Very Mild Itch/Numbness Auditory Disturbances: 0-None Visual Disturbances: 0-None Headache: 0-None Present CIWA-Ar Total Score: 8 BHS Progress Note (SOAP) Subjective: c/o of shakes, chills, interrupted sleep Objective: 09/21/19 10:47 Vital Signs Temperature 97.7 F 09/21/19 09:11 Pulse Rate 80 09/21/19 09:11 Respiratory Rate 16 09/21/19 09:11 Blood Pressure 112/72 09/21/19 09:11 O2 Sat by Pulse Oximetry (%) Laboratory Last Values WBC 3.1 K/mm3 (4.0-10.0) L 09/20/19 08:00 RBC 3.95 M/mm3 (3.60-5.2) 09/20/19 08:00 Hgb 11.6 GM/dL (10.7-15.3) 09/20/19 08:00 Hct 35.9 % (32.4-45.2) 09/20/19 08:00 MCV 90.7 fl (80-96) 09/20/19 08:00 MCH 29.3 pg (25.7-33.7) 09/20/19 08:00 MCHC 32.3 g/dl (32.0-36.0) 09/20/19 08:00 RDW 13.1 % (11.6-15.6) 09/20/19 08:00 Plt Count 317 K/MM3 (134-434) 09/20/19 08:00 MPV 8.7 fl (7.5-11.1) 09/20/19 08:00 Sodium 142 mmol/L (136-145) 09/20/19 08:00 Potassium 4.2 mmol/L (3.5-5.1) 09/20/19 08:00 Chloride 109 mmol/L (98-107) H 09/20/19 08:00 Carbon Dioxide 29 mmol/L (21-32) 09/20/19 08:00 Anion Gap 4 MMOL/L (8-16) L 09/20/19 08:00 BUN 11.8 mg/dL (7-18) 09/20/19 08:00 Creatinine 0.7 mg/dL (0.55-1.3) 09/20/19 08:00 Est GFR (CKD-EPI)AfAm 109.15 09/20/19 08:00 Est GFR (CKD-EPI)NonAf 94.17 09/20/19 08:00 Random Glucose 82 mg/dL (74-106) 09/20/19 08:00 Calcium 8.6 mg/dL (8.5-10.1) 09/20/19 08:00 Total Bilirubin 0.3 mg/dL (0.2-1) 09/20/19 08:00 AST 10 U/L (15-37) L 09/20/19 08:00 ALT 16 U/L (13-61) 09/20/19 08:00 Alkaline Phosphatase 61 U/L (45-117) 09/20/19 08:00 Total Protein 6.4 g/dl (6.4-8.2) 09/20/19 08:00 Albumin 3.3 g/dl (3.4-5.0) L 09/20/19 08:00 POC Urine HCG, Qual Negative 09/19/19 23:10 RPR Titer Nonreactive (NONREACTIVE) 09/20/19 08:00 HIV 1&2 Antibody Screen Negative 09/20/19 08:00 HIV P24 Antigen Negative 09/20/19 08:00 Assessment: 09/21/19 10:48 Ao x3 no acute distress, anxious mild b/l hand tremor present full ROM ambulating in the unit withdrawal sx Plan: increase fluids continue detox continue to monitor
[2019-09-21] MEDS ORDERED: ONDANSETRON *ODT* 4 MG TABLET SL PRN (15:47)
[2019-09-21] MEDS: THIAMINE HCL 100 MG TABLET (FP) PO SCH (22:40)
[2019-09-21] MEDS: QUEtiapine FUMARATE 50 MG TABLET PO SCH (22:40)
[2019-09-22] MEDS ORDERED: chlordiazePOXIDE HCL 10 MG CAPSULE PO PRN ×2
[2019-09-22] MEDS ORDERED: chlordiazePOXIDE HCL 10 MG CAPSULE PO SCH (05:00)
[2019-09-22] MEDS: chlordiazePOXIDE HCL 10 MG CAPSULE PO SCH ×4 (05:50→23:12)
[2019-09-22] MEDS: ACETAMINOPHEN 325 MG TABLET (FP) PO PRN ×2 (06:30→23:12)
--- NOTE | 2019-09-22 09:27 | PN ---
S CIWA - CIWA Score Nausea/Vomitin-No Nausea/No Vomiting Muscle Tremors: 2 Anxiety: 1-Mildly Anxious Agitation: 1-Slight > Activity Paroxysmal Sweats: 1-Minimal Palms Moist Orientation: 0-Oriented Tacttile Disturbances: 1-Very Mild Itch/Numbness Auditory Disturbances: 1-Very Mild Visual Disturbances: 0-None Headache: 1-Very Mild CIWA-Ar Total Score: 8 BHS Progress Note (SOAP) Subjective: c/o of interrupted sleep, body aches, chills Objective: 09/22/19 09:26 Vital Signs Period Temp Pulse Resp BP Sys/[place] Pulse Ox Last 24 Hr 97.7 F-101.1 F 72-105 16-18 90-118/58-75 Laboratory Last Values WBC 3.1 K/mm3 (4.0-10.0) L 09/20/19 08:00 RBC 3.95 M/mm3 (3.60-5.2) 09/20/19 08:00 Hgb 11.6 GM/dL (10.7-15.3) 09/20/19 08:00 Hct 35.9 % (32.4-45.2) 09/20/19 08:00 MCV 90.7 fl (80-96) 09/20/19 08:00 MCH 29.3 pg (25.7-33.7) 09/20/19 08:00 MCHC 32.3 g/dl (32.0-36.0) 09/20/19 08:00 RDW 13.1 % (11.6-15.6) 09/20/19 08:00 Plt Count 317 K/MM3 (134-434) 09/20/19 08:00 MPV 8.7 fl (7.5-11.1) 09/20/19 08:00 Sodium 142 mmol/L (136-145) 09/20/19 08:00 Potassium 4.2 mmol/L (3.5-5.1) 09/20/19 08:00 Chloride 109 mmol/L (98-107) H 09/20/19 08:00 Carbon Dioxide 29 mmol/L (21-32) 09/20/19 08:00 Anion Gap 4 MMOL/L (8-16) L 09/20/19 08:00 BUN 11.8 mg/dL (7-18) 09/20/19 08:00 Creatinine 0.7 mg/dL (0.55-1.3) 09/20/19 08:00 Est GFR (CKD-EPI)AfAm 109.15 09/20/19 08:00 Est GFR (CKD-EPI)NonAf 94.17 09/20/19 08:00 Random Glucose 82 mg/dL (74-106) 09/20/19 08:00 Calcium 8.6 mg/dL (8.5-10.1) 09/20/19 08:00 Total Bilirubin 0.3 mg/dL (0.2-1) 09/20/19 08:00 AST 10 U/L (15-37) L 09/20/19 08:00 ALT 16 U/L (13-61) 09/20/19 08:00 Alkaline Phosphatase 61 U/L (45-117) 09/20/19 08:00 Total Protein 6.4 g/dl (6.4-8.2) 09/20/19 08:00 Albumin 3.3 g/dl (3.4-5.0) L 09/20/19 08:00 POC Urine HCG, Qual Negative 09/19/19 23:10 RPR Titer Nonreactive (NONREACTIVE) 09/20/19 08:00 HIV 1&2 Antibody Screen Negative 09/20/19 08:00 HIV P24 Antigen Negative 09/20/19 08:00 Assessment: 09/22/19 09:26 Ao x3 no acute distress EENT WNL No edema or erythema laying comfortable in bed, able to participate in assessment withdrawal sx
[2019-09-22] MEDS: NICOTINE 14 MG/24 HOURS TOPICAL PATCH TD SCH (10:30)
[2019-09-22] MEDS: PRENATAL VITAMINS W/ FOLIC ACID TABLET (FP) PO SCH (10:30)
[2019-09-22] MEDS: THIAMINE HCL 100 MG TABLET (FP) PO SCH (21:55)
[2019-09-22] MEDS: QUEtiapine FUMARATE 50 MG TABLET PO SCH (21:55)
[2019-09-23] MEDS ORDERED: chlordiazePOXIDE HCL 10 MG CAPSULE PO SCH (05:00)
[2019-09-23] MEDS: chlordiazePOXIDE HCL 10 MG CAPSULE PO SCH ×2 (06:06→17:25)
[2019-09-23] MEDS: PRENATAL VITAMINS W/ FOLIC ACID TABLET (FP) PO SCH (10:24)
[2019-09-23] MEDS: NICOTINE 14 MG/24 HOURS TOPICAL PATCH TD SCH (10:24)
--- NOTE | 2019-09-23 11:55 | PN ---
S CIWA - CIWA Score Nausea/Vomitin-No Nausea/No Vomiting Muscle Tremors: None Anxiety: 2 Agitation: 1-Slight > Activity Paroxysmal Sweats: 2 Orientation: 0-Oriented Tacttile Disturbances: 0-None Auditory Disturbances: 0-None Visual Disturbances: 0-None Headache: 0-None Present CIWA-Ar Total Score: 5 S Progress Note (SOAP) Subjective: c/o mild withdrawal symptoms. Objective: 09/23/19 11:54 Vital Signs 09/23/19 09/23/19 06:51 09:30 Temperature 98.1 F 97.9 F Pulse Rate 73 98 H Respiratory 18 20 Rate Blood Pressure 101/57 L 106/72 Lab Results WBC 3.1 K/mm3 (4.0-10.0) L 09/20/19 08:00 RBC 3.95 M/mm3 (3.60-5.2) 09/20/19 08:00 Hgb 11.6 GM/dL (10.7-15.3) 09/20/19 08:00 Hct 35.9 % (32.4-45.2) 09/20/19 08:00 MCV 90.7 fl (80-96) 09/20/19 08:00 MCHC 32.3 g/dl (32.0-36.0) 09/20/19 08:00 RDW 13.1 % (11.6-15.6) 09/20/19 08:00 Plt Count 317 K/MM3 (134-434) 09/20/19 08:00 Sodium 142 mmol/L (136-145) 09/20/19 08:00 Potassium 4.2 mmol/L (3.5-5.1) 09/20/19 08:00 Chloride 109 mmol/L (98-107) H 09/20/19 08:00 Carbon Dioxide 29 mmol/L (21-32) 09/20/19 08:00 Anion Gap 4 MMOL/L (8-16) L 09/20/19 08:00 BUN 11.8 mg/dL (7-18) 09/20/19 08:00 Creatinine 0.7 mg/dL (0.55-1.3) 09/20/19 08:00 Random Glucose 82 mg/dL (74-106) 09/20/19 08:00 Calcium 8.6 mg/dL (8.5-10.1) 09/20/19 08:00 Labs noted. Assessment: 09/23/19 11:54 AOX3, in no acute respiratory distress. Full ROM, ambulating in the unit. Mild withdrawal symptoms. For d/c tomorrow. Plan: continue detox. D/C in AM.
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
[2019-09-23] MEDS: QUEtiapine FUMARATE 50 MG TABLET PO SCH (22:55)
[2019-09-23] MEDS: MELATONIN 5 MG TABLETS PO PRN (22:55)
[2019-09-23] MEDS: THIAMINE HCL 100 MG TABLET (FP) PO SCH (22:55)
[2019-09-24] MEDS ORDERED: chlordiazePOXIDE HCL 10 MG CAPSULE PO ONE ×2 (05:00)
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
[2019-09-24 09:22] VITALS: BP 122/70; PULSE 89; TEMP 98.6
== END 2019-09-24 10:05 | disposition home or self-care (01) | DRG 774 ==
LOC: YASAS 14:49 → Y3N 19:49
PROVIDERS: ADMIT Allergy & Immunology; ATTEND Allergy & Immunology
PROC: HZ2ZZZZ Detoxification Services for Substance Abuse Treatment (ICD-10-PCS; principal; 2019-09-19)
DX: F10.230 Alcohol dependence with withdrawal, uncomplicated (principal); F14.20 Cocaine dependence, uncomplicated; F12.20 Cannabis dependence, uncomplicated; F17.210 Nicotine dependence, cigarettes, uncomplicated; F19.24 Other psychoactive substance dependence with psychoactive substance-induced mood disorder; F31.9 Bipolar disorder, unspecified; J43.9 Emphysema, unspecified; J45.998 Other asthma; G47.00 Insomnia, unspecified; M12.9 Arthropathy, unspecified; Z91.19 Patient's noncompliance with other medical treatment and regimen
CPT/HCPCS: 36415; 80053; 81025; 85027; 86593; 87389; Q0162; Q2036